=== PATIENT | male | born 1960 | race Caucasian/White ===

== ENCOUNTER 2017-02-14 10:49 | Emergency (ER) | payer OTHER ==
[~2017-02-14] VITALS: Ht 170.2 cm; Wt 77.4 kg
[~2017-02-14 10:49] MED LIST: ALL180 PO; ALPR-411 PO; BNT20 PO; EPP3/2 IM; FLUO10CA48 PO; FLUO20CA35 PO
[2017-02-14 10:58] VITALS: BP 144/91; PULSE 78; TEMP 36.7; O2SAT 97; Ht 170.2 cm; Wt 77.4 kg
--- NOTE | 2017-02-14 11:24 | DIAGNOSTIC IMAGING REPORT ---
LEFT ANKLE MIN 3 VIEWS ROUTINE CLINICAL HISTORY: Left ankle pain status post trauma COMPARISON: None. DISCUSSION: There is a nondisplaced spiral fracture of the distal fibula. There is a corticated density located adjacent to medial malleolar tip. This is felt to be old. The ankle mortise appears intact on these nonstress views. There is lateral soft tissue swelling. A small joint effusion is suspected. IMPRESSION: Acute spiral fracture of the distal fibula Electronically signed by: Ramirez Cavazos M.D. 02/14/2017 11:23 AM Dictated Date/Time: 02/14/2017 11:22 AM
--- NOTE | 2017-02-14 11:34 | EMERGENCY ROOM VISIT NOTE ---
ED Visit Note First contact with patient: 11:01 CHIEF COMPLAINT: Left Ankle injury HISTORY OF PRESENT ILLNESS: This 56-year-old male presents the ER with chief complaint of ankle pain. The patient states that he slipped on the step and then his foot got caught in between the banister rails and he twisted his left ankle. The patient is able to bear weight but it is painful. The patient denies any foot or knee pain. The patient has seen [facility] in the past for other orthopedic needs. REVIEW OF SYSTEMS: 6 system review was performed and was negative unless stated otherwise in history of present illness. PMH: No prior significant ankle injury. Hernia repair SOCIAL HISTORY: Patient lives with his family. The patient denies tobacco use but admits to occasional alcohol use. PHYSICAL EXAM: Vital Signs: Were reviewed Reviewed Nurse's notes. GENERAL: 56- year-old white male appears in no acute distress. MENTAL STATUS: Alert, oriented, and cooperative. LEFT ANKLE: The ankle is swollen and tender over the lateral aspect but the skin is intact and there is no ligamentous instability. There is no deformity. The foot and toes are warm and well- perfused. Sensation to pain and light touch is intact. EMERGENCY DEPARTMENT COURSE: The patient was evaluated. X-ray of the left ankle was ordered and interpreted by the radiologist and myself. DIAGNOSTICS:LEFT ANKLE MIN 3 VIEWS ROUTINE CLINICAL HISTORY: Left ankle pain status post trauma COMPARISON: None. DISCUSSION: There is a nondisplaced spiral fracture of the distal fibula. There is a corticated density located adjacent to medial malleolar tip. This is felt to be old. The ankle mortise appears intact on these nonstress views. There is lateral soft tissue swelling. A small joint effusion is suspected. IMPRESSION: Acute spiral fracture of the distal fibula Electronically signed by: Ramirez Cavazos M.D. 02/14/2017 11:23 AM Dictated Date/Time: 02/14/2017 11:22 AM The patient was informed of the findings. The patient was placed in a posterior splint and given crutches. The patient was offered pain medication for home but he declined. Post-splinting the patient was neurovascularly intact. The patient was discharged home in stable condition. DIAGNOSIS: Fracture left distal fibula DISCHARGE INSTRUCTIONS: Ice and elevation as much as possible over the next 24 hours. Ibuprofen 600 mg every 6 hours with food for pain. Keep ankle in splint until evaluated by orthopedics. Use crutches for ambulation. Absolutely no weightbearing until evaluated by orthopedics. Call [facility] on Thursday for follow-up appointment. Current/Historical Medications Scheduled Alprazolam (Xanax), 1 TAB PO BID Dicyclomine Hcl (Bentyl *), 20 MG PO QID Epinephrine (Epipen), 0.3 MG IM UD Fexofenadine Hcl (Vida *), 180 MG PO DAILY Fluoxetine (Prozac), 20 MG PO DAILY Allergies Coded Allergies: BEE STING (Unverified Allergy, Unknown, ANAPHYLAXIS, 02/14/17) Penicillins (Verified Allergy, Unknown, `, 02/14/17) Tetracycline (Verified Allergy, Unknown, `, 02/14/17) Uncoded Allergies: STERIODS (Allergy, Unknown, ., 01/14/16) Vital Signs Date Time Temp Pulse Resp B/P (MAP) Pulse Ox O2 Delivery O2 Flow Rate FiO2 02/14/17 10:58 36.7 78 18 144/91 97 Room Air Departure Information Referrals Nabil Billings M.D. (PCP) Patient Instructions [facility]
== END 2017-02-14 12:11 | disposition home or self-care (01) ==
LOC: C.EDB 10:50 → C.EDD 12:11
DX: S82.832A Other fracture of upper and lower end of left fibula, initial encounter for closed fracture (principal); W18.40XA Slipping, tripping and stumbling without falling, unspecified, initial encounter; W23.1XXA Caught, crushed, jammed, or pinched between stationary objects, initial encounter; X50.1XXA Overexertion from prolonged static or awkward postures, initial encounter; Z98.890 Other specified postprocedural states

== ENCOUNTER → 2017-02-23 | Outpatient (CLI) | payer OTHER ==
[~2017-02-23] MED LIST changes: -FLUO10CA48 PO
== END | disposition home or self-care (01) ==
LOC: C.CPL 11:48
PROVIDERS: ATTEND Orthopaedic Surgery Orthopaedic Surgery of the Spine
DX: S82.892D Other fracture of left lower leg, subsequent encounter for closed fracture with routine healing (principal); X58.XXXD Exposure to other specified factors, subsequent encounter

== ENCOUNTER → 2017-06-16 | Outpatient (CLI) | payer OTHER | END | disposition home or self-care (01) | LOC: C.LABSPEC 17:27 | PROVIDERS: ATTEND Internal Medicine | DX: J02.9 Acute pharyngitis, unspecified (principal) ==

== ENCOUNTER → 2018-02-10 | Outpatient (CLI) | payer OTHER ==
[2018-02-10 18:03] LABS: BASO ABS # 0.08 K/uL (0-0.2); EOS % 1.4 %; EOS ABS # 0.12 K/uL (0-0.5); HEMATOCRIT 45.5 % (42-52); HEMOGLOBIN 15.7 g/dL (14.0-18.0); IG# 0.02 K/uL (0.00-0.02); LYMPH % 37.5 %; LYMPH ABS # 3.15 K/uL (1.2-3.4); MEAN CELL VOLUME 91.2 fL (80-100); MEAN CORPUSCULAR HEMOGLOBIN 31.5 pg (25-34); MEAN CORPUSCULAR HGB CONC 34.5 g/dl (32-36); MEAN PLATELET VOLUME 10.8 fL (7.4-10.4); MONO % 6.2 %; MONO ABS # 0.52 K/uL (0.11-0.59); NEUT % 53.7 %; NEUT ABS # 4.51 K/uL (1.4-6.5); PLATELET COUNT 227 K/uL (130-400); RED CELL DISTRIBUTION WIDTH CV 12.8 % (11.5-14.5); RED CELL DISTRIBUTION WIDTH SD 42.8 fL (36.4-46.3)
[2018-02-10 18:13] LABS: ALBUMIN 4.2 gm/dl (3.4-5.0); ALKALINE PHOSPHATASE 85 U/L (45-117); ALT/SGPT 45 U/L (12-78); AST/SGOT 33 U/L (15-37); BLOOD UREA NITROGEN 13 mg/dl (7-18); CALCIUM 9.4 mg/dl (8.5-10.1); CARBON DIOXIDE 22 mmol/L (21-32); CHOLESTEROL 175 mg/dl (0-200); GLUCOSE 88 mg/dl (70-99); LDL CHOLESTEROL (DIRECT) 111 mg/dl; SODIUM 137 mmol/L (136-145); TOTAL PROTEIN 7.9 gm/dl (6.4-8.2)
== END | disposition home or self-care (01) ==
LOC: C.LABSPEC 17:49
PROVIDERS: ATTEND Internal Medicine
DX: K58.9 Irritable bowel syndrome, unspecified (principal); E78.5 Hyperlipidemia, unspecified